=== PATIENT | male | born 1990 | race Caucasian/White ===

== ENCOUNTER 2022-07-21 14:57 | Emergency (ER) | payer SELFPAY ==
[~2022-07-21] VITALS: Ht 154.9 cm; Wt 76.2 kg
--- NOTE | 2022-07-21 15:49 | NUR ---
PT PROVIDED WITH URINE CUP, UNABLE TO PROVIDE A URINE SAMPLE AT THIS TIME
--- NOTE | 2022-07-21 15:49 | NUR ---
TO ER BED 4, NO CHANGE IN CONDITON
--- NOTE | 2022-07-21 16:00 | NUR ---
BLOOD SAMPLES OBTAINED
--- NOTE | 2022-07-21 16:14 | NUR ---
URINE COLLECTED AND SENT
--- NOTE | 2022-07-21 16:23 | NUR ---
PT TAKEN TO CT
--- NOTE | 2022-07-21 16:29 | NUR ---
PT RETURNED FROM CT
[2022-07-21] MEDS ORDERED: IV NS 0.9% 1,000 ML BAG IV ONE (16:30)
[2022-07-21] MEDS ORDERED: KETOROLAC TROMETHAMINE INJ 30 MG/ML VIAL IV ONE (16:30)
[2022-07-21] MEDS ORDERED: ONDANSETRON HCL/PF 4 MG/2 ML VIAL IVP ONE (16:30)
[2022-07-21 16:33] LABS: BASOPHILS # (AUTO) 0.1 K/uL (0.0-0.2); BASOPHILS % (AUTO) 0.8 % (0.0-2.0); EOSINOPHILS % (AUTO) 1.4 % (0.0-6.0); HEMATOCRIT 43 % (39-51); HEMOGLOBIN 14.3 g/dL (13.5-17.5); LYMPHOCYTES # (AUTO) 1.9 K/uL (0.8-4.8); LYMPHOCYTES % (AUTO) 19.4 % (20.0-44.0); MEAN CORPUSCULAR HGB CONC 33 g/dl (31.0-36.0); MEAN CORPUSCULAR VOLUME 81 fL (80-96); MONOCYTES # (AUTO) 0.6 K/uL (0.1-1.30); MONOCYTES % (AUTO) 6.2 % (2.0-12.0); NEUTROPHILS % (AUTO) 72.2 % (43.0-81.0); PLATELET COUNT (AUTO) 213 K/uL (150-450); RED BLOOD CELL COUNT(AUTO) 5.24 MIL/uL (4.5-6.0); WHITE BLOOD COUNT (AUTO) 9.7 K/uL (4.3-11.0)
[2022-07-21 16:40] LABS: BILIRUBIN,URINE 1+ (NEGATIVE); COLOR,URINE YELLOW (YELLOW); LEUKOCYTE ESTERASE ,URINE NEGATIVE (NEGATIVE); NITRITE, URINE POSITIVE (NEGATIVE); PH,URINE 5.5 (5.0-8.0); PROTEIN,URINE TRACE mg/dl (NEGATIVE); UGLUCOSE NEGATIVE (NEGATIVE); UROBILINOGEN,URINE 0.2 EU/dL (0.2)
[2022-07-21] MEDS ORDERED: KETOROLAC TROMETHAMINE INJ 30 MG/ML VIAL ONE (16:43)
[2022-07-21] MEDS ORDERED: ONDANSETRON HCL/PF 4 MG/2 ML VIAL ONE (16:43)
[2022-07-21 16:53] LABS: ALBUMIN 4.3 g/dL (3.4-5.0); BILIRUBIN,DIRECT 0.1 mg/dL (0.0-0.2); BILIRUBIN,TOTAL 0.3 mg/dL (0.2-1.0); CALCIUM, SERUM 9.4 mg/dL (8.5-10.1); CREATININE 1.2 mg/dL (0.6-1.3); POTASSIUM 4.6 mmol/L (3.5-5.1); TOTAL PROTEIN, SERUM 7.7 g/dL (6.4-8.2)
[2022-07-21 17:13] LABS: RBC,URINE 21-50 /HPF (0-2); WBC,URINE 0-2 /HPF (0-3)
[2022-07-21 17:14] LABS: BACTERIA,URINE None seen /HPF (None Seen); SQUAMOUS EPITHELIAL CELL,UR Few /HPF (None Seen)
[2022-07-21] MEDS ORDERED: TAMSULOSIN 0.4 MG CAP.SR.24H PO ONE (17:30)
[2022-07-21] MEDS ORDERED: TAMSULOSIN 0.4 MG CAP.SR.24H ONE (17:30)
[2022-07-21] MEDS ORDERED: HYDR-3972 PO (18:06)
[2022-07-21] MEDS ORDERED: IBUP-1953 PO (18:06)
[2022-07-21] MEDS ORDERED: TAMS-12 PO (18:06)
[2022-07-21] MEDS ORDERED: HYDROCODONE/APAP 5/325MG TABLET PO ONE (18:30)
[2022-07-21] MEDS ORDERED: HYDROCODONE/APAP 5/325MG TABLET ONE (18:32)
[2022-07-21 19:27] VITALS: BP 118/72
== END 2022-07-21 19:27 | disposition home or self-care (01) ==
LOC: ER 15:03
DX: N23 Unspecified renal colic (principal); N20.1 Calculus of ureter; R11.0 Nausea
CPT/HCPCS: 99285; 74176; 96374; 96361; 96375; 85025; 80048; 87086; 83690; 80076; 81001; 36415; J1885; J2405; J7030

== ENCOUNTER 2022-07-26 23:56 | Emergency (ER) | payer SELFPAY ==
[~2022-07-26] VITALS: Ht 157.5 cm; Wt 76.2 kg
[~2022-07-26 23:56] MED LIST: HYDR-3972 PO; IBUP-1953 PO; TAMS-12 PO
[2022-07-27 03:09] VITALS: BP 107/50
[2022-07-27] MEDS ORDERED: HYDR-4209 PO ×2 (03:18→03:21)
[2022-07-27] MEDS ORDERED: AMOX-430 PO ×2 (03:18→03:21)
[2022-07-27] MEDS ORDERED: KETO10TA2 PO ×2 (03:18→03:21)
[2022-07-27] MEDS ORDERED: HYDROCODONE/APAP 5/325MG TABLET PO ONE (03:30)
[2022-07-27] MEDS ORDERED: OXYC-128 PO (03:36)
== END 2022-07-27 03:42 | disposition home or self-care (01) ==
LOC: ER 23:58
DX: K02.9 Dental caries, unspecified (principal); K04.7 Periapical abscess without sinus; F17.200 Nicotine dependence, unspecified, uncomplicated; Z79.899 Other long term (current) drug therapy